=== PATIENT | female | born 1935 | race Asian ===

== ENCOUNTER 2018-05-20 10:13 | Outpatient (CLI) | payer MEDICARE, OTHER | END 2018-05-20 10:14 | disposition short-term general hospital (02) | LOC: EMS 10:13 | PROVIDERS: ATTEND Surgery | DX: R55 Syncope and collapse (principal) | CPT/HCPCS: A0425; A0427; A0888 ==

== ENCOUNTER 2023-11-25 16:07 | Outpatient (CLI) | payer MEDICARE, OTHER | END 2023-11-25 16:08 | disposition EMS.NT | LOC: EMS 16:07 | DX: M25.561 Pain in right knee (principal); W18.39XA Other fall on same level, initial encounter; Y92.009 Unspecified place in unspecified non-institutional (private) residence as the place of occurrence of the external cause ==